=== PATIENT | female | born 1990 | race Caucasian/White ===

== ENCOUNTER 2016-08-23 02:29 | Inpatient (IN) | payer BC ==
[~2016-08-23] VITALS: Ht 154.9 cm; Wt 71.4 kg
[2016-08-23] VITALS (9 sets, daily range): BP systolic 101–133; BP diastolic 58–78
[~2016-08-23 02:29] MED LIST: AMOXICILLIN875 MG PO; ATHENOL325 MG PO; ENDOCET 5-3251 EACH PO; IBUPROFEN800 MG PO; PRENATAL TABLE1 EAC3 PO; PROBIOTIC1 EAC1 PO
[2016-08-23 05:07] LABS: EOSINOPHIL (%) 0.7 % (0-5); EOSINOPHIL COUNT 0.1 K/uL (0-0.3); HEMATOCRIT 33.9 % (36.0-46.0); IMMATURE GRANULOCYTE (%) 0.6 % (0.0-0.7); IMMATURE GRANULOCYTE COUNT 0.1 K/uL; INSTRUMENT ABS NEUTROPHIL CT 7.5 K/uL; LYMPHOCYTE COUNT 1.5 K/uL (1.0-2.8); MCH 31.4 PG (29.0-34.0); MCHC 34.2 G/DL (30.0-36.0); MCV 91.6 FL (83-99); MEAN PLAT.VOLUME 10.5 uM^3 (9.5-12.4); MONOCYTE (%) 2.9 % (3-12); MONOCYTE COUNT 0.3 K/uL (0-0.8); NEUTROPHIL (%) 80.1 % (45-76); NEUTROPHIL COUNT 7.5 K/uL (1.8-6.4); PLATELET COUNT 174 K/uL (156-360); RBC DIS.WIDTH-CV 13.5 % (11.8-14.6); RBC DIS.WIDTH-SD 45.1 % (39-53); WHITE BLOOD COUNT 9.4 K/uL (4.1-10.2)
[2016-08-23] MEDS ORDERED: MOTRIN800 MG PO (08:07)
[2016-08-24 07:15] LABS: EOSINOPHIL (%) 1.5 % (0-5); EOSINOPHIL COUNT 0.2 K/uL (0-0.3); IMMATURE GRANULOCYTE (%) 0.5 % (0.0-0.7); IMMATURE GRANULOCYTE COUNT 0.1 K/uL; INSTRUMENT ABS NEUTROPHIL CT 7.8 K/uL; LYMPHOCYTE COUNT 2.4 K/uL (1.0-2.8); MCH 31.7 PG (29.0-34.0); MCHC 33.8 G/DL (30.0-36.0); MCV 93.7 FL (83-99); MEAN PLAT.VOLUME 10.4 uM^3 (9.5-12.4); MONOCYTE (%) 4.4 % (3-12); MONOCYTE COUNT 0.5 K/uL (0-0.8); NEUTROPHIL (%) 71.6 % (45-76); NEUTROPHIL COUNT 7.8 K/uL (1.8-6.4); PLATELET COUNT 162 K/uL (156-360); RBC DIS.WIDTH-CV 13.7 % (11.8-14.6); RBC DIS.WIDTH-SD 46.7 % (39-53); RED BLOOD COUNT 3.63 M/uL (3.80-5.20); WHITE BLOOD COUNT 10.9 K/uL (4.1-10.2)
[2016-08-24 08:08] VITALS: BP 106/73
[2016-08-24 14:22] VITALS: BP 114/61
[2016-08-24 22:24] VITALS: BP 111/60
[2016-08-25 07:52] VITALS: BP 114/62
== END 2016-08-25 11:05 | disposition home or self-care (01) | DRG 775 ==
LOC: LDRP-OP 02:29 → 2WEST 02:30 → LDRP-OP 09:53 → 2WEST 08-24 19:54 → LDRP-OP 09-19 16:28
PROVIDERS: Midwife
PROC: 10E0XZZ Delivery of Products of Conception, External Approach (ICD-10-PCS; principal; 2016-08-23)
DX: O99.824 Streptococcus B carrier state complicating childbirth (principal); Z3A.40 40 weeks gestation of pregnancy; Z37.0 Single live birth; G43.909 Migraine, unspecified, not intractable, without status migrainosus; L28.2 Other prurigo; O26.893 Other specified pregnancy related conditions, third trimester; O99.354 Diseases of the nervous system complicating childbirth; O99.72 Diseases of the skin and subcutaneous tissue complicating childbirth; Z83.3 Family history of diabetes mellitus
CPT/HCPCS: 85025; J2540; J7120